=== PATIENT | male | born 1980 | race Caucasian/White ===

== ENCOUNTER 2018-02-14 12:25 | Emergency (ER) | payer SELFPAY ==
[~2018-02-14] VITALS: Ht 170.2 cm; Wt 60.9 kg
[2018-02-14 12:29] VITALS: Ht 170.2 cm; Wt 60.9 kg
[2018-02-14] MEDS ORDERED: AMOXICILLIN500 M1 PO (13:07)
[2018-02-14] MEDS ORDERED: ROBITUSSIN AC (10 M1 PO (13:07)
[2018-02-14 13:43] VITALS: BP 138/66
== END 2018-02-14 13:44 | disposition home or self-care (01) ==
LOC: D.ER 12:25
DX: J06.9 Acute upper respiratory infection, unspecified (principal); J40 Bronchitis, not specified as acute or chronic; R09.89 Other specified symptoms and signs involving the circulatory and respiratory systems; F17.200 Nicotine dependence, unspecified, uncomplicated

== ENCOUNTER 2018-05-20 15:49 | Emergency (ER) | payer MEDICAID ==
[~2018-05-20] VITALS: Ht 170.2 cm; Wt 68.2 kg
[~2018-05-20 15:49] MED LIST: AMOXICILLIN500 M1 PO; ROBITUSSIN AC (10 M1 PO
[2018-05-20 15:54] VITALS: Ht 170.2 cm; Wt 68.2 kg
[2018-05-20] MEDS ORDERED: BACTRIM DS1 TAB PO (17:15)
[2018-05-20] MEDS ORDERED: ULTRAM50 MG PO (17:15)
[2018-05-20 17:35] VITALS: BP 134/93
== END 2018-05-20 17:36 | disposition home or self-care (01) ==
LOC: D.ER 15:49
DX: L03.115 Cellulitis of right lower limb (principal); S99.922A Unspecified injury of left foot, initial encounter; X58.XXXA Exposure to other specified factors, initial encounter; Y93.89 Activity, other specified; Y92.89 Other specified places as the place of occurrence of the external cause; F17.200 Nicotine dependence, unspecified, uncomplicated

== ENCOUNTER 2018-08-21 10:30 | Emergency (ER) | payer MEDICAID ==
[~2018-08-21] VITALS: Ht 170.2 cm; Wt 70.5 kg
[~2018-08-21 10:30] MED LIST changes: +BACTRIM DS1 TAB PO; +ULTRAM50 MG PO
[2018-08-21 10:33] VITALS: Ht 170.2 cm; Wt 70.5 kg
[2018-08-21 11:12] LABS: BASOPHILS 0.1 % (0-2); EOSINOPHILS 0.6 % (0-7); HEMATOCRIT 40.5 % (42.0-54.0); HEMOGLOBIN 13.6 g/dL (13.5-17.5); IMMATURE GRANULOCYTES 0.1 % (0-5); LYMPHOCYTES 10.1 % (15-50); MCH 29.4 pg (26.0-34.0); MCHC 33.6 g/dL (31.0-37.0); MCV 87.5 fL (80.0-100.0); MEAN PLATELET VOLUME 9.2 fL (7.4-10.4); NEUTROPHILS 86.1 % (40-80); PLATELET COUNT 196 10x3/uL (130-400); RBC 4.63 10x6/uL (4.20-6.10); RDW 14.3 % (11.5-14.5)
[2018-08-21 11:28] LABS: ALBUMIN 3.9 g/dL (3.4-5.0); ALKALINE PHOSPHATASE 96 U/L (46-116); ALT (SGPT) 29 U/L (10-68); BILIRUBIN - TOTAL 0.35 mg/dL (0.2-1.3); CALC OSMOLALITY 274 mosm/kg (275-300); CALCIUM 8.4 mg/dL (8.5-10.1); CARBON DIOXIDE 23.7 mmol/L (21.0-32.0); CHLORIDE - SERUM 104 mmol/L (98-107); CREATININE - SERUM 0.9 mg/dL (0.6-1.3); GLUCOSE 100 mg/dL (74-106); POTASSIUM - SERUM 4.1 mmol/L (3.5-5.1); PROTEIN - SERUM 7.7 g/dL (6.4-8.2); SODIUM 138 mmol/L (136-145); UREA NITROGEN 10 mg/dL (7-18); eGFR NON AFRICAN AMERICAN > 90 mL/min (90-120)
[2018-08-21 11:33] LABS: APPEARANCE CLEAR (CLEAR); BILIRUBIN NEGATIVE (NEGATIVE); COLOR YELLOW (YELLOW); GLUCOSE NEGATIVE (NEGATIVE); KETONE NEGATIVE (NEGATIVE); NITRITE NEGATIVE (NEGATIVE); PROTEIN NEGATIVE (NEGATIVE); SPECIFIC GRAVITY 1.015 (1.005-1.020); UROBILINOGEN NORMAL (NORMAL)
[2018-08-21] MEDS ORDERED: PHENERGAN DM SYR5 ML PO (11:39)
[2018-08-21] MEDS ORDERED: TAMIFLU75 MG PO (11:39)
[2018-08-21 12:08] VITALS: BP 138/93
== END 2018-08-21 12:08 | disposition home or self-care (01) ==
LOC: D.ER 10:30
PROVIDERS: Family Medicine
DX: J11.1 Influenza due to unidentified influenza virus with other respiratory manifestations (principal); R06.9 Unspecified abnormalities of breathing; R09.89 Other specified symptoms and signs involving the circulatory and respiratory systems; R50.9 Fever, unspecified